=== PATIENT | female | born 1965 | race Caucasian/White ===

== ENCOUNTER 2016-07-30 16:51 | Emergency (ER) | payer MEDICAID ==
[~2016-07-30] VITALS: Ht 162.6 cm; Wt 49.0 kg
[2016-07-30 16:55] VITALS: BP_SYST 138
[2016-07-30] MEDS ORDERED: KETOROLAC TROMETHAMINE 60 MG/2 ML VIAL IM ONE (17:00)
[2016-07-30 17:10] VITALS: BP_SYST 138
== END 2016-07-30 17:10 | disposition home or self-care (01) ==
LOC: SED 16:51
DX: Z02.89 Encounter for other administrative examinations (principal); Z88.0 Allergy status to penicillin; Z85.05 Personal history of malignant neoplasm of liver; Z86.19 Personal history of other infectious and parasitic diseases
CPT/HCPCS: 99283

== ENCOUNTER 2016-08-31 15:53 | Emergency (ER) | payer MEDICAID ==
[~2016-08-31] VITALS: Ht 162.6 cm; Wt 54.4 kg
[2016-08-31 15:53] VITALS: BP_SYST 134
[2016-08-31 16:17] VITALS: BP_SYST 134
== END 2016-08-31 16:17 ==
LOC: SED 15:53
DX: Z02.89 Encounter for other administrative examinations (principal); K74.60 Unspecified cirrhosis of liver; F17.210 Nicotine dependence, cigarettes, uncomplicated; Z88.0 Allergy status to penicillin; Z85.05 Personal history of malignant neoplasm of liver
CPT/HCPCS: 99283

== ENCOUNTER 2022-08-03 20:58 | Inpatient (IN) | payer MEDICAID ==
[~2022-08-03] VITALS: Ht 160 cm; Wt 53.6 kg
[2022-08-03 21:05] VITALS: BP_SYST 120
[2022-08-03 21:34] LABS: BASOPHILS % (AUTO) 0.3 % (0.0-2.0); EOSINOPHILS # (AUTO) 0.1 K/uL (0.0-0.4); EOSINOPHILS % (AUTO) 0.5 % (0.0-4.0); HEMATOCRIT 34.6 % (36-48); HEMOGLOBIN 11.6 g/dL (12.0-16.0); LYMPHOCYTES # (AUTO) 2.6 K/uL (1.0-5.5); LYMPHOCYTES % (AUTO) 23.3 % (20.5-51.5); MEAN CORPUSCULAR HEMOGLOBIN 29 pg (27-31); MEAN CORPUSCULAR HGB CONC 34 % (32-36); MEAN CORPUSCULAR VOLUME 85 fL (79.0-98.0); MONOCYTES # (AUTO) 1.6 K/uL (0.0-1.0); NEUTROPHILS % (AUTO) 61.9 % (40.0-70.0); PLATELET COUNT (AUTO) 191 K/uL (130-430); RED BLOOD CELL COUNT(AUTO) 4.08 MIL/uL (4.2-6.2); WHITE BLOOD COUNT (AUTO) 11.4 K/uL (4.8-10.8)
[2022-08-03 21:46] LABS: ALANINE AMINOTRANSFERASE 26 U/L (12-78); ANION GAP 7 (5-15); ASPARTATE AMINOTRANSFERASE 35 U/L (10-37); CALCIUM 8.2 mg/dL (8.4-11.0); CHLORIDE 102 mmol/L (98-107); GFR AFRICAN AMERICAN 111 mL/min (>90); GLUCOSE 179 mg/dL (70-99); TOTAL BILIRUBIN 0.8 mg/dL (0.0-1.0); UREA NITROGEN, BLOOD 14 mg/dL (8-21)
[2022-08-03] MEDS ORDERED: MORPHINE 4 MG INJ. 4 MG/ML VIAL IVP ONE (22:30)
[2022-08-03] MEDS ORDERED: ONDANSETRON HCL 4 MG/2 ML VIAL IVP ONE (22:30)
[2022-08-03] MEDS ORDERED: NACL 0.9% 1,000 ML IV ONE (22:30)
[2022-08-04] MEDS ORDERED: ACETAMINOPHEN 325 MG TABLET PO PRN ×2 (01:30→11:00)
[2022-08-04] MEDS ORDERED: HYDROcodone/ACETAMIN 5-325 MG TAB (NORCO/ VICODIN) PO PRN (01:30)
[2022-08-04] MEDS ORDERED: ONDANSETRON HCL 4 MG/2 ML VIAL IVP PRN (01:30)
[2022-08-04 02:27] VITALS: BP_SYST 116
[2022-08-04] MEDS ORDERED: PIPERACILLIN/TAZO 3.375 GM in NS 50 ML IV SCH (06:00)
[2022-08-04 07:44] VITALS: BP_SYST 121
[2022-08-04] MEDS: MORPHINE 4 MG INJ. 4 MG/ML VIAL IVP PRN ×4 (07:44→23:13)
[2022-08-04] MEDS ORDERED: AZITHROMYCIN 500 MG in NS 250 ML IV SCH ×4 (09:00)
[2022-08-04 10:58] VITALS: BP_SYST 121
[2022-08-04] MEDS ORDERED: IPRATROPIUM/ALBUTEROL SULFATE 3 ML AMPUL.NEB (DUONEB) INH PRN (11:00)
[2022-08-04] MEDS ORDERED: traMADol HCL HCL 50 MG TABLET (ULTRAM) PO PRN (11:00)
[2022-08-04 13:50] VITALS: BP_SYST 133
[2022-08-04 20:07] VITALS: BP_SYST 118
[2022-08-04 20:09] VITALS: BP_SYST 119
[2022-08-04] MEDS: LACTOBACILLUS RHAMNOSUS GG 1 CAP CAPSULE PO SCH (23:12)
[2022-08-05] MEDS: MORPHINE 4 MG INJ. 4 MG/ML VIAL IVP PRN ×2 (05:20→10:52)
[2022-08-05 07:06] LABS: BASOPHILS % (AUTO) 0.3 % (0.0-2.0); EOSINOPHILS # (AUTO) 0.1 K/uL (0.0-0.4); EOSINOPHILS % (AUTO) 1.4 % (0.0-4.0); HEMATOCRIT 36.8 % (36-48); HEMOGLOBIN 12.3 g/dL (12.0-16.0); LYMPHOCYTES # (AUTO) 2.3 K/uL (1.0-5.5); LYMPHOCYTES % (AUTO) 30.4 % (20.5-51.5); MEAN CORPUSCULAR HEMOGLOBIN 29 pg (27-31); MEAN CORPUSCULAR HGB CONC 33 % (32-36); MEAN CORPUSCULAR VOLUME 86 fL (79.0-98.0); MONOCYTES # (AUTO) 1.1 K/uL (0.0-1.0); MONOCYTES % (AUTO) 14.2 % (1.7-9.3); NEUTROPHILS # (AUTO) 4.1 K/uL (1.8-7.7); NEUTROPHILS % (AUTO) 53.7 % (40.0-70.0); PLATELET COUNT (AUTO) 210 K/uL (130-430); RED CELL DISTRIBUTION WIDTH 13.5 % (9.0-15.0); WHITE BLOOD COUNT (AUTO) 7.6 K/uL (4.8-10.8)
[2022-08-05 07:37] LABS: ANION GAP 7 (5-15); CALCIUM 8.1 mg/dL (8.4-11.0); CHLORIDE 101 mmol/L (98-107); CREATININE 0.52 mg/dL (0.55-1.30); GFR AFRICAN AMERICAN 157 mL/min (>90); GLUCOSE 89 mg/dL (70-99); UREA NITROGEN, BLOOD 5 mg/dL (8-21)
[2022-08-05 07:42] VITALS: BP_SYST 114
[2022-08-05 07:43] LABS: ALANINE AMINOTRANSFERASE 25 U/L (12-78); ALBUMIN 2.5 g/dL (3.4-4.8); ASPARTATE AMINOTRANSFERASE 30 U/L (10-37); CHOLESTEROL 116 mg/dL (<200); HDL CHOLESTEROL 48 mg/dL (>55); TOTAL BILIRUBIN 0.5 mg/dL (0.0-1.0); TRIGLYCERIDES 73 mg/dL (30-150)
[2022-08-05] MEDS: LACTOBACILLUS RHAMNOSUS GG 1 CAP CAPSULE PO SCH (08:29)
[2022-08-05 13:10] VITALS: BP_SYST 108
== END 2022-08-05 13:05 | disposition left against medical advice (07) | DRG 139 ==
LOC: SED 20:58 → STU 08-04 01:23
PROVIDERS: ADMIT Internal Medicine; ATTEND Internal Medicine
DX: J18.9 Pneumonia, unspecified organism (principal); J96.00 Acute respiratory failure, unspecified whether with hypoxia or hypercapnia; E44.1 Mild protein-calorie malnutrition; J44.0 Chronic obstructive pulmonary disease with (acute) lower respiratory infection; J44.1 Chronic obstructive pulmonary disease with (acute) exacerbation; G89.4 Chronic pain syndrome; D64.9 Anemia, unspecified; Z20.822 Contact with and (suspected) exposure to COVID-19; F17.210 Nicotine dependence, cigarettes, uncomplicated; R53.81 Other malaise; B19.20 Unspecified viral hepatitis C without hepatic coma; Z68.20 Body mass index [BMI] 20.0-20.9, adult; Z88.0 Allergy status to penicillin; Z59.00 Homelessness unspecified; Z87.01 Personal history of pneumonia (recurrent); Z86.16 Personal history of COVID-19; R07.89 Other chest pain
CPT/HCPCS: 36415; 36600; 71045; 71250-TC; 76376; 80053; 80061; 82803; 83605; 83880; 84484; 85025; 85379; 86803; 87040; 93005; 93306; 94760; 96361; 96374; 96375; 99285; G0378; J0456; J1956; J2270; J2405; J7050